=== PATIENT | male | born 1975 ===

== ENCOUNTER 2019-02-12 12:03 | Emergency (ER) | payer SELFPAY ==
[~2019-02-12] VITALS: Ht 170.2 cm; Wt 67.5 kg
[2019-02-12] MEDS ORDERED: ONDANSETRON ODT 4 MG PO ONE (12:30)
[2019-02-12] MEDS ORDERED: THIAMINE 100MG TABLET PO ONE (12:30)
[2019-02-12] MEDS ORDERED: ONDANSETRON ODT 4 MG ONE (12:33)
[2019-02-12] MEDS ORDERED: THIAMINE 100MG TABLET ONE (12:33)
--- NOTE | 2019-02-12 12:39 | NUR ---
PT FOUND WITH LITER OF VODKA, ATTEMPTING TO DRINK OUT OF HIS CUP. BELONGINGS TAKEN FROM PT. PT MEDICATED PER OCT. PT MAKING INAPPROPRIATE COMMENTS, "LET ME SEE THOSE TITTIES" "YOU SO DAMN CUTE", PT CONTINUES TO REQUEST MORE VODKA.
--- NOTE | 2019-02-12 13:30 | NUR ---
pt given crackers, juice and pudding. pt cooperative and lying in room. pt up to br and used urinal at bedside and stable on feed.
--- NOTE | 2019-02-12 14:46 | NUR ---
pt discharged with discharge instructions. pt refusing to sign paperwork. pt stating " you are going to discharge me, I' m going to call the kennel worker and tell them that you are discharging me intoxicated, a least let me sleep till I am a 0." Explained to pt that he could be discharged if stable on feet even if he was still intoxicated. pt then stated " I will get jumped on the streets or picked up by the kennel worker for being drunk. " Explained to pt that he was very stable on his feet. Encouraged pt to go get a hotel room and sleep in a hotel room if he needed more sleep. Security at bedside. pt given belongings. pt then escorted out by security. pt stable on feet.
[2019-02-12 14:50] VITALS: BP 137/74
== END 2019-02-12 14:52 | disposition home or self-care (01) ==
LOC: ED 14:46
DX: F10.120 Alcohol abuse with intoxication, uncomplicated (principal); F17.210 Nicotine dependence, cigarettes, uncomplicated
CPT/HCPCS: 99283; Q0162

== ENCOUNTER 2019-02-13 12:44 | Emergency (ER) | payer SELFPAY ==
[~2019-02-13] VITALS: Ht 170.2 cm; Wt 66.0 kg
--- NOTE | 2019-02-13 13:06 | NUR ---
PATIENT ACTIVELY VOMITING IN TRIAGE. ZOFRAN ODT GIVEN PER PROTOCOL. PATIENT DENIES PROLONGED QT SYNDROME.
--- NOTE | 2019-02-13 13:17 | NUR ---
PT TO ED FOR N/V WITH ETOH DETOX. PT STATES LAST DRINK WAS AROUND 0000 LAST NIGHT. UNSURE HOW MUCHWAS CONSUMED. PT CONNECTED TO MONITORS. VSS. PT STATES WOULD LIKE REFERRAL TO REHAB FACILITY. ZOFRAN ODT GIVEN IN TRIAGE. PT STATES REDUCTION IN NAUSEA AND IS ABLE TO KEEP WATER DOWN. EDMD ASSESSMENT COMPLETE. AWAITING ORDERS.
[2019-02-13] MEDS ORDERED: LORazepam 1MG TABLET ONE (13:21)
[2019-02-13] MEDS ORDERED: ONDANSETRON ODT 4 MG PO ONE (13:30)
[2019-02-13] MEDS ORDERED: LORazepam 1MG TABLET PO ONE (13:30)
--- NOTE | 2019-02-13 14:35 | NUR ---
pt resting in room wtih eyes closed and lights dimmed. vss. provided water. no other needs expressed. call light within reach.
--- NOTE | 2019-02-13 16:02 | NUR ---
pt resting in room wtih eyes closed and lights dimmed. vss. no needs expressed. call light within reach.
--- NOTE | 2019-02-13 16:49 | NUR ---
PT DOZING ON BED - EASILY AWAKENED, SIDE RAILS UP X2, MONITORING CONTINUES, RESP EVEN & UNLABORED.
--- NOTE | 2019-02-13 16:53 | NUR ---
C/O HEADACHE & ABD PAIN. USUALLY TAKES ALEVE FOR SARAVIA PAIN; WILL NOTIFY DR MCMILLAN.
[2019-02-13] MEDS ORDERED: ACETAMINOPHEN 325 MG TABLET PO ONE (17:00)
--- NOTE | 2019-02-13 17:51 | NUR ---
pt resting in room wtih eyes closed and lights dimmed. vss. no needs expressed. call light within reach.
--- NOTE | 2019-02-13 18:33 | NUR ---
pt resting in room wtih eyes closed and lights dimmed. vss. no needs expressed. call light within reach.
--- NOTE | 2019-02-13 19:12 | NUR ---
pt resting in room wtih eyes closed and lights dimmed. vss. no needs expressed. call light within reach.
--- NOTE | 2019-02-13 20:05 | NUR ---
pt resting in room with eyes closed and lights dimmed. vss. no needs expressed. call light within reach.
[2019-02-13] MEDS ORDERED: ONDANSETRON ODT 4 MG ONE (20:56)
[2019-02-13] MEDS ORDERED: ACETAMINOPHEN 325 MG TABLET ONE (20:56)
--- NOTE | 2019-02-13 21:00 | NUR ---
pt up to rr with steady gait with standby assistance from tech. pt ready to dc.
[2019-02-13 21:01] VITALS: BP 144/112
== END 2019-02-13 21:27 | disposition home or self-care (01) ==
LOC: ED 21:00
DX: F10.239 Alcohol dependence with withdrawal, unspecified (principal); F10.229 Alcohol dependence with intoxication, unspecified; F17.200 Nicotine dependence, unspecified, uncomplicated
CPT/HCPCS: 99284; Q0162